=== PATIENT | male | born 2000 | race Caucasian/White ===

== ENCOUNTER → 2024-12-10 | Outpatient (REF) | payer OTHER | LOC: M SMT 14:11 | PROVIDERS: ATTEND Urology | DX: Z30.2 Encounter for sterilization (principal) ==

== ENCOUNTER → 2025-02-06 | Outpatient (REF) | payer OTHER ==
[2025-02-06 13:10] LABS: SEMEN APPEARANCE OPAQUE (OPAQUE); SEMEN VISCOSITY LIQUID (LIQUID); SEMEN VOLUME 1.1 ml (2.0-5.0)
[2025-02-06 13:11] LABS: WBC CONCENTRATION <=1 M/ml (<=1 M/ml)
== END ==
LOC: M SMT 12:17
PROVIDERS: ATTEND Urology
DX: Z30.8 Encounter for other contraceptive management (principal)